=== PATIENT | female | born 2000 | race Caucasian/White ===

== ENCOUNTER 2019-04-21 19:43 | Emergency (ER) | payer SELFPAY ==
[~2019-04-21] VITALS: Ht 172 cm; Wt 75.0 kg
--- NOTE | 2019-04-21 20:23 | ED GU-Female ---
General Chief Complaint: SALES EXEC Stated Complaint: VAG BLEEDING 8 WEEKS Nursing Triage Note: Patient ambulatory to ER room 9 with complaint of vaginal bleeding that began today. Patient states she is 8 weeks and this was confirmed at [facility] in [place] where she had a positive test. Patient states she has not followed up yet with OBGYN. She does have lower pelvic pain today. She also complains of being constipated with having a hard BM yesterday morning. Nursing Sepsis Screen: No Definite Risk Source: patient Exam Limitations: no limitations History of Present Illness Date Seen by Provider: Apr 21, 2019 Time Seen by Provider: 20:23 Initial Comments 19-year-old patient presents with complaints of vaginal bleeding. Patient reports being 8 weeks . Patient was seen at [facility] in [place] 2-3 weeks ago with a positive urine test and with a positive chlamydia test. Patient was treated for 2 weeks with oral medication. States her partner was also treated for the chlamydia. Denies following up with an software testing specialist. Denies following up with [facility] for the STD repeat testing. Patient reports heavy bleeding and pelvic cramping beginning this a.m. Reports 2 hours ago bleeding decreased. Timing/Duration: this morning, other (improving) Severity/Quality: cramping Location: suprapubic Radiation: none Activities at Onset: none Prior Genitourinary Problems: similar symptoms (2 previous miscarriages) Sexual Boling History: less than 2 months ago, single partner Modifying Factors: Worsens With Palpation Allergies and Home Medications Allergies Coded Allergies: No Known Drug Allergies (Unverified , 04/21/19) Home Medications Naproxen 500 Mg Tablet, 500 MG PO BID PRN for pain Prescribed by: DAMION NOLASCO on 04/21/19 1372 Patient Home Medication List Home Medication List Reviewed: Yes Review of Systems Review of Systems Constitutional: No chills, No dizziness, No fever, No malaise Respiratory: No cough, No dyspnea on exertion, No short of breath, No wheezing Cardiovascular: No chest pain, No edema, No palpitations, No syncope Gastrointestinal: see HPI, abdominal pain (suprapubic abdominal pain); No constipation, No diarrhea, No loss of appetite, No melena, No nausea, No vomiting Genitourinary: see HPI; denies burning, denies dysuria, denies frequency, denies flank pain, denies hematuria; pain (suprapubic abdominal pain), other (vaginal bleeding) : Yes LMP: Feb 17, 2019 Musculoskeletal: No back pain Skin: no symptoms reported Psychiatric/Neurological: No Symptoms Reported All Other Systemes Reviewed Negative Unless Noted: Yes (Negative excepted noted.) Past Ssatzvx-[id number]-Byujvq Hx Past Med/Social Hx: Reviewed Nursing Past Med/Soc Hx Patient Social History Alcohol Use: Denies Use Recreational Drug Use: 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) Smoking Status: Current Everyday Smoker Type Used: Cigarettes 2nd Hand Smoke Exposure: Yes Recent Foreign Travel: No Contact w/Someone Who Travel: No Recent Infectious Disease Expo: No Recent Hopitalizations: No Physical Abuse: No Sexual Abuse: No Mistreated: No Fear: No Seasonal Allergies Seasonal Allergies: No Past Medical History Surgeries: No Respiratory: No Cardiac: No Neurological: No : Yes Hx : 2 Hx Para: 0 Hx Total # of Abortions (Sp): 2 Reproductive Disorders: Yes (chlamydia infection 2 wks ago) Genitourinary: No Gastrointestinal: No Musculoskeletal: No Endocrine: No HEENT: No Cancer: No Psychosocial: No Integumentary: No Blood Disorders: No Family Medical History Reviewed Nursing Family Hx No Pertinent Family Hx Physical Exam Vital Signs Vital Signs - First Documented 04/21/19 19:55 Temp 36.7 Pulse 88 Resp 16 B/P (MAP) 117/71 (86) Pulse Ox 100 O2 Delivery Room Air Capillary Refill : Less Than 3 Seconds Height, Weight, BMI Height: '" Weight: lbs. oz. kg; 25.00 BMI Method: General Appearance: WD/WN, no apparent distress HEENT: PERRL/EOMI, pharynx normal Neck: supple, normal inspection Cardiovascular: normal peripheral pulses, regular rate, rhythm, no edema, no gallop, no murmur Respiratory: lungs clear, normal breath sounds, no respiratory distress, no accessory muscle use Gastrointestinal: normal bowel sounds, soft, no organomegaly; No distended, No guarding, No rebound; tenderness (suprapubic abdominal tenderness) Pelvic: normal external exam, no masses; No discharge; tender w/ cervical motion, tender adnexa, vaginal bleeding (approximately 2-3 mL dark blood noted in the vaginal vault) Back: normal inspection, no CVA tenderness Extremities: no pedal edema, no calf tenderness, normal capillary refill Neurologic/Psychiatric: alert, normal mood/affect, oriented x 3 Skin: normal color, warm/dry Progress/Results/Core Measures Suspected Sepsis Recent Fever Within 48 Hours: No Infection Criteria Present: None New/Unexplained Altered Menta: No Sepsis Screen: No Definite Risk SIRS Temperature: Pulse: 88 Respiratory Rate: 16 Blood Pressure 117 /71 Mean: 86 Results/Orders Lab Results Laboratory Tests Test 04/21/19 20:00 04/21/19 20:40 Range/Units Urine Color YELLOW Urine Clarity CLEAR Urine pH 6.5 5-9 Urine Specific [place] 1.015 L 1.016-1.022 Urine Protein 2+ H NEGATIVE Urine Glucose (UA) NEGATIVE NEGATIVE Urine Ketones NEGATIVE NEGATIVE Urine Nitrite NEGATIVE NEGATIVE Urine Bilirubin NEGATIVE NEGATIVE Urine Urobilinogen NORMAL NORMAL MG/DL Urine Leukocyte Esterase NEGATIVE NEGATIVE Urine RBC (Auto) 3+ H NEGATIVE Urine RBC 5-10 H /HPF Urine WBC NONE /HPF Urine Squamous Epithelial Cells 2-5 /HPF Urine Crystals NONE /LPF Urine Bacteria NEGATIVE /HPF Urine Casts NONE /LPF Urine Mucus NEGATIVE /LPF Urine Culture Indicated NO My Orders Orders - DAMION NOLASCO Ua Culture If Indicated (04/21/19 20:22) Wet Prep (04/21/19 20:32) Neisseria Gonorrhea Swab (04/21/19 20:32) Genital Culture (04/21/19 20:32) Chlamydia Trachomatis Swab (04/21/19 20:32) Ibuprofen Tablet (Motrin Tablet) (04/21/19 22:04) Vital Signs/I&O 04/21/19 04/21/19 19:55 22:18 Temp 36.7 36.5 Pulse 88 74 Resp 16 16 B/P (MAP) 117/71 (86) 103/63 Pulse Ox 100 99 O2 Delivery Room Air Room Air Capillary Refill : Less Than 3 Seconds Blood Pressure Mean: 86 Departure Communication (Admissions) Laboratory findings discussed with the patient. Plan for discharge to home with follow-up as an outpatient with her PCP or patient resource coordinator of choice. Patient to return immediately to the emergency department for worsened symptoms or any other concerns. Impression Primary Impression: Spontaneous miscarriage Disposition: 01 HOME, SELF-CARE Condition: Improved Departure-Patient Inst. Decision time for Depature: 22:03 Referrals: NO,LOCAL PHYSICIAN (PCP/Family) Primary Care Physician Patient Instructions: Miscarriage (DC) Add. Discharge Instructions: All discharge instructions reviewed with patient and/or family. Voiced understanding. Tylenol Extra Strength [id number] as directed for pain. I buprofen 600 mg by mouth every 6-8 hours as needed for pain. Stay hydrated. Follow-up with the patient resource coordinator or family practitioner of your choice for recheck and further management. Return to the emergency department for worsened symptoms or any other concerns. Scripts Naproxen (Naprosyn) 500 Mg Tablet 500 MG PO BID PRN for pain, #30 TAB 0 Refills Prov: DAMION NOLASCO 04/21/19 Work/School Note: Local Medical Staff Listing DAMION NOLASCO Apr 21, 2019 20:23
[2019-04-21 20:34] LABS: BILIRUBIN,URINE NEGATIVE (NEGATIVE); CLARITY,URINE CLEAR; COLOR,URINE YELLOW; GLUCOSE, URINE (UA) NEGATIVE (NEGATIVE); KETONES,URINE NEGATIVE (NEGATIVE); LEUKOCYTE ESTERASE ,URINE NEGATIVE (NEGATIVE); NITRITE,URINE NEGATIVE (NEGATIVE); PH,URINE 6.5 (5-9); PROTEIN,URINE 2+ (NEGATIVE); UROBILINOGEN,URINE NORMAL (NORMAL)
[2019-04-21 20:40] LABS: BACTERIA,URINE NEGATIVE /HPF
[2019-04-21] MEDS ORDERED: NAPR-1071 PO (22:04)
[2019-04-21] MEDS ORDERED: IBUPROFEN 800 MG (MOTRIN) TAB PO STA (22:04)
[2019-04-21 22:18] VITALS: BP 103/63
== END 2019-04-21 22:26 | disposition home or self-care (01) ==
LOC: ER 19:48
DX: O03.9 Complete or unspecified spontaneous abortion without complication (principal); O99.331 Smoking (tobacco) complicating pregnancy, first trimester; F17.210 Nicotine dependence, cigarettes, uncomplicated
CPT/HCPCS: 36415; 81000; 84703; 87070; 87205; 87210; 87491; 87591; 99284